=== PATIENT | male | born 1990 ===

== ENCOUNTER 2021-09-13 11:47 | Emergency (ER) | payer SELFPAY ==
[~2021-09-13 11:47] MED LIST: BACTRIM DS TAB1 EACH PO; COLACE100 MG PO; FLEET ENEMA EX230 ML PR; KEFLEX250 MG PO; MIRALAX 238GM238 GM PO
== END 2021-09-13 16:49 | disposition left against medical advice (07) ==
LOC: FER 11:47
DX: K64.9 Unspecified hemorrhoids (principal); Z53.21 Procedure and treatment not carried out due to patient leaving prior to being seen by health care provider